=== PATIENT | female | born 1935 | race Caucasian/White ===

== ENCOUNTER 2017-09-07 15:53 | Inpatient (IN) | payer OTHER ==
[2017-09-07] MEDS ORDERED: TUSSIONEX PENNKINETIC SUSP PO PRN (16:32)
--- NOTE | 2017-09-07 17:31 | RAD ---
Examination: Chest, PA and lateral views History: Cough, pneumonia, hypertension and breast cancer Comparison reference: None Findings: The heart is not enlarged. The right lung is clear. There is extensive opacity at the left base compatible with large pleural effusion. Underlying airspace disease may be present in the left l ower lobe. A more diffuse infiltrate is present in the left upper lung. No bone destruction is seen. Surgical clips are noted in the left axilla. Impression: Pleural-parenchymal abnormality in the left lung and pleural space may represent acute in flammatory disease although, with the history of breast malignancy, metastatic process should be cons idered. Follow-up indicated. Reported By:
[2017-09-07 17:35] LABS: BASOPHILS # (AUTO) 0.3 X10^3/uL (0.0-0.1); BASOPHILS % (AUTO) 1.9 % (0.2-1.0); EOSINOPHILS % (AUTO) 0.2 % (0.9-2.9); HEMATOCRIT 36.5 % (36.0-47.0); HEMOGLOBIN 12.8 g/dL (12.0-16.0); LYMPHOCYTES # (AUTO) 1.1 X10^3/uL (1.3-2.9); LYMPHOCYTES % (AUTO) 8.3 % (21.0-51.0); MEAN CORPUSCULAR HEMOGLOBIN 33.3 pg (27.0-34.0); MEAN CORPUSCULAR HGB CONC 34.9 g/dL (33.0-35.0); MEAN CORPUSCULAR VOLUME 95.3 fL (80.0-100.0); MEAN PLATELET VOLUME 7.2 fL (7.4-11.0); MONOCYTES # (AUTO) 1.5 x10^3/uL (0.3-0.8); MONOCYTES % (AUTO) 10.9 % (0.0-13.0); NEUTROPHILS # (AUTO) 10.9 x10^3/uL (2.2-4.8); NEUTROPHILS % (AUTO) 78.7 % (42.0-75.0); PLATELET COUNT 203 X10^3/uL (150.0-450.0); RED BLOOD COUNT 3.83 X10^6/uL (3.5-5.4); RED CELL DISTRIBUTION WIDTH 14.8 % (11.6-16.5); WHITE BLOOD COUNT 13.8 X10^3/uL (3.6-10.0)
[2017-09-07 17:46] LABS: BAND NEUTROPHILS % 5 % (0-10); PLATELET MORPHOLOGY COMMENT NORMAL (NORMAL)
[2017-09-07 17:49] LABS: ALANINE AMINOTRANSFERASE 33 Units/L (12-78); ALBUMIN 2.5 g/dL (3.4-5.0); ALKALINE PHOSPHATASE 97 Units/L (46-116); ASPARTATE AMINO TRANSFERASE 29 Units/L (15-37); BLOOD UREA NITROGEN 15 mg/dL (7-18); CALCIUM 8.9 mg/dL (8.5-10.1); CARBON DIOXIDE 28.6 mmol/L (21-32); CHLORIDE 93 mmol/L (98-107); COR CA(FOR HYPOALB) 10.1 mg/dL (8.5-10.1); CREATININE 1.04 mg/dL (0.55-1.02); SODIUM 128 mmol/L (136-145); TOTAL PROTEIN 8.1 g/dL (6.4-8.2); eGFR BLACK RACES > 60 (>60); eGFR NON BLACK RACES 54 (>60)
[2017-09-07 17:54] VITALS: BMI 21.4
[2017-09-07] MEDS ORDERED: NS 1000 ML 1,000 ML ONE (18:19)
[2017-09-07] MEDS: ROBITUSSIN DM PO SCH ×2 (18:30→20:40)
[2017-09-07] MEDS: LEVAQUIN PREMIX IV 500 MG 500 MG/100 ML BAG IV SCH (18:31)
[2017-09-07] MEDS ORDERED: NS 1/2 1000 ML IV 1,000 ML IV ONE (18:32)
[2017-09-07] MEDS: NS 1/2 1000 ML IV 1,000 ML IV SCH (18:35)
[2017-09-07] MEDS: DUREZOL OPHTH 1 DOSE EACHEYE SCH (20:40)
[2017-09-07] MEDS: XOPENEX 1.25 MG/3 ML NEBULE NEB SCH (20:51)
[2017-09-07] MEDS ORDERED: HYPROMELLOSE EACHEYE SCH (21:00)
[2017-09-08 05:11] LABS: BASOPHILS % (AUTO) 0.1 % (0.2-1.0); EOSINOPHILS % (AUTO) 0.2 % (0.9-2.9); HEMATOCRIT 36.2 % (36.0-47.0); HEMOGLOBIN 12.7 g/dL (12.0-16.0); MEAN CORPUSCULAR HEMOGLOBIN 33.9 pg (27.0-34.0); MEAN CORPUSCULAR VOLUME 96.7 fL (80.0-100.0); MEAN PLATELET VOLUME 7.6 fL (7.4-11.0); MONOCYTES # (AUTO) 1.4 x10^3/uL (0.3-0.8); MONOCYTES % (AUTO) 13.4 % (0.0-13.0); NEUTROPHILS % (AUTO) 76.3 % (42.0-75.0); PLATELET COUNT 175 X10^3/uL (150.0-450.0); RED BLOOD COUNT 3.74 X10^6/uL (3.5-5.4); RED CELL DISTRIBUTION WIDTH 14.6 % (11.6-16.5); WHITE BLOOD COUNT 10.5 X10^3/uL (3.6-10.0)
[2017-09-08 05:25] LABS: ALANINE AMINOTRANSFERASE 27 Units/L (12-78); ALKALINE PHOSPHATASE 81 Units/L (46-116); ASPARTATE AMINO TRANSFERASE 21 Units/L (15-37); BLOOD UREA NITROGEN 11 mg/dL (7-18); CALCIUM 8.5 mg/dL (8.5-10.1); CARBON DIOXIDE 27.2 mmol/L (21-32); CHLORIDE 97 mmol/L (98-107); COR CA(FOR HYPOALB) 10.1 mg/dL (8.5-10.1); COR NA(FOR HYPERGLY) 130 mmol/L (136-145); CREATININE 1.08 mg/dL (0.55-1.02); SODIUM 130 mmol/L (136-145); eGFR BLACK RACES > 60 (>60); eGFR NON BLACK RACES 52 (>60)
--- NOTE | 2017-09-08 07:07 | RAD ---
HISTORY: Pneumonia, cough, shortness of breath. Prior history of hypertension and breast cancer. Study: Single-view chest, done portably Comparison: 09/07/2017. Findings: Cardiac monitoring electrodes are noted on chest. There are surgical clips present in the left axilla . Increasing left pleural densities are present compared to the prior studies. This may indicate incr easing pleural effusion. This may be on a benign or malignant basis. Compressive atelectasis is seen in the left lower lobe and left perihilar regions. Increased interstitial markings are present bilate rally. Osseous structures are intact. The trachea is midline. Heart size is difficult to accurately g eodes but is probably enlarged. IMPRESSION: Increasing pleural-parenchymal densities present involving the left chest. Reported By:
[2017-09-08] MEDS: SYNTHROID 75 mcg TAB PO SCH (08:50)
[2017-09-08] MEDS: CARDIZEM CD 180 MG PO SCH (08:50)
[2017-09-08] MEDS: TOPROL XL PO SCH (08:50)
[2017-09-08] MEDS: DUREZOL OPHTH 1 DOSE EACHEYE SCH ×2 (08:51→21:11)
[2017-09-08] MEDS: ALBUMIN HUMAN 25%- 100ML 100 ML IV SCH (08:51)
[2017-09-08] MEDS: HYPROMELLOSE EACHEYE SCH ×2 (08:51→21:03)
[2017-09-08] MEDS: LEVAQUIN PREMIX IV 500 MG 500 MG/100 ML BAG IV SCH (08:52)
[2017-09-08] MEDS: ROBITUSSIN DM PO SCH ×5 (08:52→21:09)
[2017-09-08] MEDS: XARELTO PO SCH (08:52)
[2017-09-08] MEDS ORDERED: PATIENT'S HOME MEDICATION (Rivaroxaban [Xarelto] 20 MG) PO SCH (09:00)
[2017-09-08] MEDS ORDERED: HYPROMELLOSE OP SCH (09:00)
[2017-09-08] MEDS: XOPENEX 1.25 MG/3 ML NEBULE NEB SCH ×4 (09:15→20:40)
[2017-09-08] MEDS ORDERED: TORADOL 30 MG VIAL IVP SCH (10:00)
--- NOTE | 2017-09-08 11:01 | DR.UPDATE ---
H&P Update History and Physical Update: WAS SEEN IN THE OFFICE TODAY. A H&P WAS COMPLETED PRIOR TO ADMISSION. PATIENT HAS BEEN SEEN AND EXAMINED WITH NO CHANGES NOTED TO H&P. Changes noted: NO Yes with the following:
--- NOTE | 2017-09-08 12:10 | PCM.PROG ---
Progress Note - Progress Note for Day of Date: 09/08/17 - Subjective Subjective: WAS ADMITTED FOR POSSIBLE PNEUMONIA AND A LEFT SIDED PLEURAL EFFUSION. A CHEST XRAY THAT WAS OBTAINED ON ADMISSION REPORTED PLEURAL- PARENCHYMAL ABNORMALITY IN THE LEFT LUNG AND LEURAL SPACE THAT MAY REPRESENT ACUTE INFLAMMATORY DISEASE ALTHOUGH, WITH THE HISTORY OF BREAST MALIGNANCY, METASTATIC PROCESS SHOULD BE CONSIDERED. PATIENT REPORTS A HISTORY OF OF BREAST CANCER IN 1987. TODAY, SHE IS ALERT AND ORIENTED, LYING IN BED ON MORNING ROUNDS. SHE CONTINUES WITH COMPLAINTS OF A PERSISTENT, NON-PRODUCTIVE COUGH AND SHORNTESS OF BREATH. ON EXAMINATION, HEART RATE IS NORMAL IN RATE AND RHYTHM. LUNG SOUNDS ARE DIMINISHED WITH A PLEURAL FRICTION RUB NOTED TO THE LEFT SIDE. ABDOMEN IS FLAT, SOFT, AND NON-TENDER WITH NORMAL BOWEL SOUNDS NOTED IN ALL QUADRANTS. SHE IS NOTED TO BE UTILIZING OXYGEN VIA NASAL CANNULA AT 2L/MIN. HER VITAL SIGNS THIS MORNING ARE 98.0-102-20-96%-128/64. ABNORMAL LAB VALUES INCLUDE THE FOLLOWING: WBC 10.5, SODIUM 130, CHLORIDE 97, CREATININE 1.08, GLUCOSE 112, ALBUMIN 2.0, GLOBULIN 5.0. CHEST XRAY REPORTED INCREASING PLEURAL- PARENCHYMAL DENSITIES PRESENT INVOLVING THE LEFT CHEST TAHT MAY INDICATE INCREASING PLEUAL EFFUSION. TODAY, WE WILL START TORADOL 30MG IV Q6H FOR PLEURISY AND START ALBUMIN 25% IV DAILY. WE PLAN TO FOLLOW UP WITH AM LABS AND CHEST XRAY AND CONTINUE TO MONITOR PATIENT. - Past Medical Family Social History Past Med/Fam/Surg Hx: No changes since H&P Allergies: Allergies benzalkonium chloride [From Merthiolate (benzalkonium)] Allergy (Verified 18:22) merbromin [From Mercurochrome] Allergy (Verified 09/07/17 18:22) - Review of Systems ROS: No change since H&P - Vital Signs and I&O's Vital Signs: Temperature 99.3 F Pulse Rate [Left Brachial] 97 Pulse Rate 90 Respiratory Rate 18 Blood Pressure [Right Arm] 94/59 Blood Pressure [Left Arm] 115/59 O2 Sat by Pulse Oximetry 96 Intake and Output: Intake & Output 09/05/17 09/06/17 09/07/17 09/08/17 11:59 11:59 11:59 11:59 Intake Total 1020 Balance 1020 - Physical Exam Oriented: Normal Eyes: Normal Ear: Normal Nose: Normal Throat: Normal Respiratory: Left, Diminished, OTHER (LEFT PLEURAL FRICTION RUB) Cardiovascular: Normal : Normal Auscultation: Bowel Sounds: Normal Palpation: Normal Tenderness: Normal Skin: Normal Musculoskeletal: Normal Psychiatric: Normal Mood Description: Calm Affect: Normal Speech Pattern: Clear, Appropriate - Laboratory and Diagnostics Result Diagrams: 09/08/17 04:15 09/08/17 04:15 Labs: 09/07/17 17:01 Sputum - Expectorated Sputum Sputum Culture - Preliminary 09/07/17 17:01 Sputum - Expectorated Sputum - Final Laboratory WBC 10.5 X10^3/uL (3.6-10.0) H 09/08/17 04:15 RBC 3.74 X10^6/uL (3.5-5.4) 09/08/17 04:15 Hgb 12.7 g/dL (12.0-16.0) 09/08/17 04:15 Hct 36.2 % (36.0-47.0) 09/08/17 04:15 MCV 96.7 fL (80.0-100.0) 09/08/17 04:15 MCH 33.9 pg (27.0-34.0) 09/08/17 04:15 MCHC 35.0 g/dL (33.0-35.0) 09/08/17 04:15 RDW 14.6 % (11.6-16.5) 09/08/17 04:15 Plt Count 175 X10^3/uL (150.0-450.0) 09/08/17 04:15 Plt Count Comment Adequate (ADEQUATE) 09/07/17 17:18 MPV 7.6 fL (7.4-11.0) 09/08/17 04:15 Neut % 76.3 % (42.0-75.0) H 09/08/17 04:15 Lymph % 10.0 % (21.0-51.0) L 09/08/17 04:15 [place] % 13.4 % (0.0-13.0) H 09/08/17 04:15 Eos % 0.2 % (0.9-2.9) L 09/08/17 04:15 Baso % 0.1 % (0.2-1.0) L 09/08/17 04:15 Neut # 8.0 x10^3/uL (2.2-4.8) H 09/08/17 04:15 Lymph # 1.0 X10^3/uL (1.3-2.9) L 09/08/17 04:15 [place] # 1.4 x10^3/uL (0.3-0.8) H 09/08/17 04:15 Eos # 0.0 x10^3/uL (0.0-0.2) 09/08/17 04:15 Baso # 0.0 X10^3/uL (0.0-0.1) 09/08/17 04:15 Absolute Nucleated RBC 0.0 /100WBC 09/08/17 04:15 Total Counted 100 09/07/17 17:18 Neutrophils % (Manual) 61 % (39-76) 09/07/17 17:18 Band Neutrophils % 5 % (0-10) 09/07/17 17:18 Lymphocytes % (Manual) 27 % (13-43) 09/07/17 17:18 Monocytes % (Manual) 7 % (4-9) 09/07/17 17:18 Plt Morphology Comment Normal (NORMAL) 09/07/17 17:18 RBC Morphology Normal (NORMAL) 09/07/17 17:18 Sodium 130 mmol/L (136-145) L 09/08/17 04:15 Corrected Sodium 130 mmol/L (136-145) L 09/08/17 04:15 Potassium 4.4 mmol/L (3.5-5.1) 09/08/17 04:15 Chloride 97 mmol/L (98-107) L 09/08/17 04:15 Carbon Dioxide 27.2 mmol/L (21-32) 09/08/17 04:15 BUN 11 mg/dL (7-18) 09/08/17 04:15 Creatinine 1.08 mg/dL (0.55-1.02) H 09/08/17 04:15 Est GFR (MDRD) Af Amer > 60 (>60) 09/08/17 04:15 Est GFR (MDRD) Non-Af 52 (>60) L 09/08/17 04:15 Glucose 112 mg/dL (65-99) H 09/08/17 04:15 Calcium 8.5 mg/dL (8.5-10.1) 09/08/17 04:15 Corrected Calcium 10.1 mg/dL (8.5-10.1) 09/08/17 04:15 Total Bilirubin 0.60 mg/dL (0.2-1.0) 09/08/17 04:15 AST 21 Units/L (15-37) 09/08/17 04:15 ALT 27 Units/L (12-78) 09/08/17 04:15 Alkaline Phosphatase 81 Units/L (46-116) 09/08/17 04:15 Total Protein 7.0 g/dL (6.4-8.2) 09/08/17 04:15 Albumin 2.0 g/dL (3.4-5.0) L 09/08/17 04:15 Globulin 5.0 g/dL (2.5-4.5) H 09/08/17 04:15 Albumin/Globulin Ratio 0.4 Ratio (1.1-2.1) L 09/08/17 04:15 - Plan (1) Pleurisy with effusion Status: Acute Plan: TORADOL 30MG IV Q6H, CONTINUE LEVAQUIN 500MG IV DAILY, CONTINUE BREATHING TX, CONTINUE TO MONITOR
[2017-09-08] MEDS: TORADOL 30 MG VIAL IVP SCH ×2 (13:57→21:06)
[2017-09-08] MEDS: NS 1/2 1000 ML IV 1,000 ML IV SCH ×3 (16:43→21:07)
[2017-09-08] MEDS ORDERED: NS 1/2 1000 ML IV 0 ML IV ONE (17:52)
[2017-09-08] MEDS ORDERED: NS 1/2 1000 ML IV 1,000 ML IV ONE (19:56)
[2017-09-09 05:06] LABS: BASOPHILS % (AUTO) 0.1 % (0.2-1.0); EOSINOPHILS % (AUTO) 0.2 % (0.9-2.9); HEMATOCRIT 34.1 % (36.0-47.0); HEMOGLOBIN 11.9 g/dL (12.0-16.0); LYMPHOCYTES # (AUTO) 0.7 X10^3/uL (1.3-2.9); LYMPHOCYTES % (AUTO) 7.4 % (21.0-51.0); MEAN CORPUSCULAR HEMOGLOBIN 33.2 pg (27.0-34.0); MEAN CORPUSCULAR HGB CONC 34.8 g/dL (33.0-35.0); MEAN CORPUSCULAR VOLUME 95.5 fL (80.0-100.0); MEAN PLATELET VOLUME 7.5 fL (7.4-11.0); MONOCYTES # (AUTO) 1.3 x10^3/uL (0.3-0.8); MONOCYTES % (AUTO) 13.5 % (0.0-13.0); NEUTROPHILS # (AUTO) 7.8 x10^3/uL (2.2-4.8); NEUTROPHILS % (AUTO) 78.8 % (42.0-75.0); PLATELET COUNT 174 X10^3/uL (150.0-450.0); RED BLOOD COUNT 3.57 X10^6/uL (3.5-5.4); RED CELL DISTRIBUTION WIDTH 14.4 % (11.6-16.5); WHITE BLOOD COUNT 9.9 X10^3/uL (3.6-10.0)
[2017-09-09] MEDS: TORADOL 30 MG VIAL IVP SCH ×2 (05:10→09:26)
[2017-09-09 06:52] LABS: ALANINE AMINOTRANSFERASE 21 Units/L (12-78); ALBUMIN 2.6 g/dL (3.4-5.0); ALKALINE PHOSPHATASE 76 Units/L (46-116); ASPARTATE AMINO TRANSFERASE 23 Units/L (15-37); BLOOD UREA NITROGEN 9 mg/dL (7-18); CALCIUM 8.5 mg/dL (8.5-10.1); CARBON DIOXIDE 25.6 mmol/L (21-32); CHLORIDE 96 mmol/L (98-107); COR CA(FOR HYPOALB) 9.6 mg/dL (8.5-10.1); COR NA(FOR HYPERGLY) 131 mmol/L (136-145); CREATININE 0.99 mg/dL (0.55-1.02); SODIUM 131 mmol/L (136-145); eGFR BLACK RACES > 60 (>60); eGFR NON BLACK RACES 58 (>60)
--- NOTE | 2017-09-09 07:18 | RAD ---
HISTORY: Follow-up pleural effusion Study: Chest AP portable Comparison: 09/08/2017 Findings: Heart size difficult to assess due to obscuration of the left heart border by a large left pleural ef fusion which also obscures the lung markings in the left lower lobe. The effusion has increased sligh tly since the prior examination. The aerated left apex is clear as is the right lung. The bony thorax is unremarkable. IMPRESSION: Increasing left pleural effusion obscuring the lung markings in the left lower lobe Right lung clear Reported By:
[2017-09-09] MEDS: XOPENEX 1.25 MG/3 ML NEBULE NEB SCH (09:16)
[2017-09-09] MEDS: ALBUMIN HUMAN 25%- 100ML 100 ML IV SCH (09:25)
[2017-09-09] MEDS: LEVAQUIN PREMIX IV 500 MG 500 MG/100 ML BAG IV SCH (09:25)
[2017-09-09] MEDS: XARELTO PO SCH (09:26)
[2017-09-09] MEDS: ROBITUSSIN DM PO SCH (09:26)
[2017-09-09] MEDS: SYNTHROID 75 mcg TAB PO SCH (09:26)
[2017-09-09] MEDS: CARDIZEM CD 180 MG PO SCH (09:26)
[2017-09-09] MEDS: TOPROL XL PO SCH (09:26)
[2017-09-09] MEDS: HYPROMELLOSE EACHEYE SCH (09:27)
[2017-09-09] MEDS: DUREZOL OPHTH 1 DOSE EACHEYE SCH (09:27)
[2017-09-09 10:57] VITALS: BP 142/63
== END 2017-09-09 12:45 | disposition home or self-care (01) | DRG 186 ==
LOC: MED/SURG 15:53
PROVIDERS: ADMIT Internal Medicine; ATTEND Internal Medicine
DX: J90 Pleural effusion, not elsewhere classified (principal); J18.8 Other pneumonia, unspecified organism; J40 Bronchitis, not specified as acute or chronic; J30.9 Allergic rhinitis, unspecified; R06.02 Shortness of breath; D72.828 Other elevated white blood cell count; E87.1 Hypo-osmolality and hyponatremia; Z85.3 Personal history of malignant neoplasm of breast
CPT/HCPCS: 36415; 71010; 71020; 80053; 85025; 87040; 87070; 87077; 87186; 87205; 94640; 94760; A4222; P9047; J1885; J1956